=== PATIENT | female | born 1995 | race Caucasian/White ===

== ENCOUNTER 2017-11-18 18:00 | Emergency (ER) | payer MEDICAID, SELFPAY ==
[2017-11-18 18:01] VITALS: BP 142/95; PULSE 110; RESP 22; TEMP 36.6; O2SAT 95; BMI 25.9
[2017-11-18 18:07] VITALS: BP 142/95; PULSE 102; RESP 22; TEMP 36.6; O2SAT 98
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
--- NOTE | 2017-11-18 18:18 | NURSING ---
CALLING [facility] ABOUT TRANSFER.
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
--- NOTE | 2017-11-18 18:23 | NURSING ---
NO OLD EKGS
[2017-11-18] MEDS: HYDROmorphone 1 MG/ML Syringe IV ×3 (18:26→19:17)
[2017-11-18] MEDS: 0.9% Normal Saline 1,000 ML 1000 ML IV (18:26)
[2017-11-18] MEDS: 0.9% Normal Saline 1,000 ML 150 ML IV (18:26)
[2017-11-18] MEDS: Ondansetron 4 MG/2 ML Vial IV (18:26)
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
[2017-11-18 18:38] LABS: Absolute Neutrophil Count 8.2 X10^3/uL (2.0-7.7); Basophil# 0.01 X10^3/uL; Basophil% 0.1 % (0-1); Eosinophil# 0.09 X10^3/uL; Eosinophils% 0.8 % (0-5); Hematocrit 41.9 % (37-47); Lymphocyte % 23.5 % (19-41); Mean Corp Hgb Conc 33.4 g/gl (32-36); Mean Corpuscular Hgb 30.1 pg (27.0-32.0); Mean Corpuscular Volume 90.1 fL (81-99); Monocyte# 0.74 X10^3/uL; Monocyte% 6.2 % (0-10); Neutrophil # 8.21 X10^3/uL (2.7-7.7); Neutrophil % 69.1 % (47-70); POSITIVE COUNT NO; POSITIVE DIFFERENTIAL NO; POSITIVE MORPHOLOGY NO; Platelet Count 315 K/mm3 (150-450); RBC Distribution Width CV 13.1 % (11.6-14.6); RBC Distribution Width SD 42.7 fl (35.1-43.9); Red Blood Count 4.65 M/mm3 (4.2-5.4); White Blood Count 11.9 K/mm3 (4.4-11.0)
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
[2017-11-18 18:46] VITALS: BP 160/124; PULSE 99; RESP 18; O2SAT 98
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
[2017-11-18 19:00] LABS: AST(SGOT) 48 U/L (15-37); Alanine Aminotransfer ALT/SGPT 46 U/L (13-56); Albumin, Serum 3.5 g/dL (3.2-5.0); Alkaline Phosphatase 71 U/L (45-117); Anion Gap 7 (5-15); BUN 11 mg/dL (7-18); BUN/Creat Ratio 13.5 RATIO (10-20); Calcium,Total 8.6 mg/dL (8.5-10.1); Chloride 112 mmol/L (98-107); Creatinine, Serum 0.81 mg/dL (0.55-1.02); EST Glomerular Filtration Rate 95 mL/min (>60); Est Glom Filt Rate - Afr Amer 115 mL/min (>60); Estimated Creatinine Clearance 111.76 ml/min; Globulin 3.6 g/dL (2.2-4.2); Glucose 105 mg/dL (74-106); Potassium 3.5 mmol/L (3.5-5.1); Protein, Total 7.1 g/dL (6.4-8.2); Sodium Level 142 mmol/L (136-145)
[2017-11-18 19:17] VITALS: BP 160/124; PULSE 99; RESP 20; O2SAT 98
== END 2017-11-18 19:14 | disposition short-term general hospital (02) ==
PROVIDERS: Emergency Provider Emergency Medicine
DX: S72.91XA Unspecified fracture of right femur, initial encounter for closed fracture (principal); S09.90XA Unspecified injury of head, initial encounter; S39.91XA Unspecified injury of abdomen, initial encounter; V89.2XXA Person injured in unspecified motor-vehicle accident, traffic, initial encounter; Y93.9 Activity, unspecified; Y92.410 Unspecified street and highway as the place of occurrence of the external cause; Y99.9 Unspecified external cause status; Z72.0 Tobacco use
CPT/HCPCS: 70450; 71045; 72125; 72170; 73551; 80053; 80320; 85025; 96361; 96374; 96375; 96376; 99285; J7030; A4216; G0480; J2405

== ENCOUNTER 2017-12-29 06:43 | Emergency (ER) | payer MEDICAID, SELFPAY ==
[2017-12-29 06:44] VITALS: BP 113/90; PULSE 100; RESP 28; TEMP 36.8; O2SAT 97; BMI 36.2
[2017-12-29] MEDS: fentaNYL 100 MCG/2 ML Ampul 50 MCG IV (07:47)
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
--- NOTE | 2017-12-29 09:05 | ED.DEP ---
ED Disposition - Plan for ED Patient: Chief Complaint: Fall Instructions: Using a Walker Prescriptions: Hydrocodone Bitart/Apap 5-325 [[place] 5MG-325MG] 1 tab PO Q6H PRN PRN 3 Days #10 tab PRN Reason: Pain Additional Instructions: follow up with Dr. Gill
[2017-12-29 09:38] VITALS: RESP 20
== END 2017-12-29 10:00 | disposition home or self-care (01) ==
LOC: ED 06:53
PROVIDERS: Emergency Provider Emergency Medicine
DX: M79.604 Pain in right leg (principal); Z72.0 Tobacco use
CPT/HCPCS: 72170; 73552; 73560; 99285; A4216

== ENCOUNTER 2018-01-21 10:50 | Emergency (ER) | payer MEDICAID, SELFPAY ==
[2018-01-21 10:52] VITALS: BP 128/73; PULSE 86; RESP 16; TEMP 36.4; BMI 35.2
[2018-01-21 11:05] VITALS: RESP 16
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
--- OUTSIDE RECORDS SUMMARY | 2018-04-25 01:25 | XMS RPT_ITS ---
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 Dental caries. PLAN/DISPOSITION: I have advised her to make sure she does continue the Pen-VK every 6 hours. She is to follow up with her dentist appointment on October 16, but we did give her a dental referral sheet as well, so if she could get in to see someone sooner that would be good. If the patient's symptoms become worse, she is to return here to the emergency department. The patient was discharged in a clinically stable condition. Nursing notes reviewed. Dictated By: Manish Nolan DO 09/26/17 17:25 JOB #: [id number] Transcribed By: am 09/27/17 16:30 Electronically signed by: E-Sign: Dr. Manish Nolan D.O. 10/03/17 16:01 Page 2 of 3 [facility]AT[facility] Emergency Room Report Page 3 of 3 [facility] Emergency Room Report EMERGENCY REPORT Observed: 05/10/2017 Status: F Source: [facility] 7:19 PM [facility] EMERGENCY ROOM REPORT NAME ACCOUNT SEX AGE ADMIT DISCHARGE PT MED. RECORD# NUMBER DATE DATE TYPE DILL [id number] F 21 05/01/17 05/02/17 3 BEATRIZ [id number] ROOM: ER DATE OF : 1995 DICTATING PHYSICIAN: Mahsa Mcmillan ADDENDUM: FAMILY HISTORY: The patient denied. She states her mom and dad were in reasonable of health. She denied any psychiatric issues in her family. D: Mahsa DO Hipolito TD: 05/03/17 17:45 JOB #: [id number] Transcribed by: am Electronically signed by: E-SIGN MAHSA OMVANIA MULLEN 05/10/17 19:18 Page 1 of 1 [facility] Emergency Room Report EMERGENCY REPORT Observed: 05/10/2017 Status: F Source: [facility] 7:18 PM [facility] EMERGENCY ROOM REPORT NAME ACCOUNT SEX AGE ADMIT DISCHARGE PT MED. RECORD# NUMBER DATE DATE TYPE FUENTES [id number] F 21 05/01/17 05/02/17 3 BEATRIZ [id number] ROOM: ER DATE OF : 1995 DICTATING PHYSICIAN: Mahsa Mcmillan HISTORY OF PRESENT ILLNESS: This is a very nice young lady with no physician who arrived at 2212 hours. She was seen directly at arrival for self mutilation and self injury. She is having problems with her boyfriend at home, and she thinks he is going to leave her and she has been pretty depressed about that. She has not been using any drugs that she admits to. She states that she has not been using alcohol. She states she does smoke. She wants to have a job, but her boyfriend will not let her have a job because they want to live out in the [facility], and so she states that she is hoping that he will let her have a job. She quit her previous job because she wanted to be a stay at home , and she thought it would be appropriate for her to stop working. So that is what the story is, and so she is not working. She states tonight she is not sure if she is really suicidal, but she has had multiple self inflicted wounds on her wrist. She is right handed. Tonight, she used a hoop cutter and cut her wrists, and she did a nice job. It went about 4 or 5 inches proximal to lower wrist crease on the left. It is a 7 cm wound with penetration to the fascia, but no evidence of underlying tendon injury. Good tendon strength distally, neurovascular distal is okay, and no exposed tendons, arteries, nerves. The patient has no other injuries. This is a transverse incision. It is very clean. She has some proximal irritation to the wrists, which she states she has done in the past. Otherwise, she is well spoken. She demonstrates some depression, but good eye contact. I talked at length with her. Later, mom and boyfriend came in. Her boyfriend's mom and her boyfriend seemed to be somewhat indifferent to the whole situation. PAST MEDICAL HISTORY: She states she has had problems with depression and suicidal ideations in the past, nothing that she has ever done. MEDICATIONS: She does not take any medicines. PHYSICAL EXAMINATION: The patient is alert, oriented, and appropriate. Pupils equal, round, and reactive 2.5 mm. No nystagmus. Neck is supple. There is no anterior or posterior cervical adenopathy. Lungs are clear. Heart rate and rhythm regular without murmur. She is not tachypneic. Abdomen is soft. Bowel sounds are normal. Skin is warm and dry except where she has the laceration on the left wrist as previously noted. Her vital signs at arrival: She had 20 respirations, 97.8 temporal scanning, 108 pulse, 130/92 blood pressure, and 99% saturation. DIAGNOSTIC DATA: Her laboratory data for medical clearance was stable. She did have a 17.8 Co2, but I think that was patient admitting representative to the fact that she was Page 1 of 2 [facility] Emergency Room Report hyperventilating when she first came in. She had an EKG with a rate of 89. No evidence of acute NC or ischemia. There was no ectopy seen. There is no evidence of any toxic problem there. EMERGENCY DEPARTMENT COURSE AND TREATMENT: She denied any injections. Laboratories were ordered. She was placed under observation. She remainder cooperative. She is alert. She is allergic lidocaine she states, so I used Benadryl after cleansing the surface used that and instilled it around the skin edges, and the patient has no pain and then we sutured her wound closed using six 4-0 Vicryl and then we used 4 Steri-Strip fastened with tissue adhesive. The patient had no further bleeding. Neurovascular remained intact. The patient remained cooperative. I talked to her many times during the night, and she always remained comfortable, cooperative. She was pink slipped by Dr. Mcmillan. She is medically cleared. One final evaluation at 7 o'clock in the morning, I said good-bye to the patient. She was alert and appropriate. Pupils were normal, and she acknowledges she was going and that she was going to be receiving some psychiatric assistance. DIAGNOSES: 1. Major depression with laceration left arm 6 cm transverse volar aspect, 6 stitches 4 Steri-Strips. 2. Poor impulse control. PLAN/DISPOSITION: The people from guidance came and saw her, and determined if she would benefit from admission. She is a very smart young lady, but she also has poor impulse control, and it looks to us like there is some indifference that could occur between her and her boyfriend that would lead her to another impulse evacuation, which I think could be anything, and so I think it is the prudent thing to have her hospitalized. She is pretty mixed up about her thinking when she came in. Arrangements for admission was at 0127 hours, and the ambulance will be here at about 0900 hours in the morning to take her. She was informed. She was cooperative and agreeable, although she states she wished she could go home, but she did not require restraints and she was cooperative in the emergency room. D: Mahsa Mcmillan DO TD: 05/03/17 17:05 JOB #: [id number] Transcribed by: am Electronically signed by: E-SIGN MAHSA MCMILLAN DO 05/10/17 19:18 Page 2 of 2 [facility] Emergency Room Report URINALYSIS Collected: 05/01/2017 Status: F Source: [facility] 10[facility] REPOSITORY TYPE CODE TESTS RESULT OUT OF REFERENCE UNITS RANGE LAB URINALYSIS (LOINC) URINALYSIS Result Comment: URINALYSIS LAB Specimen Type(LOINC) Specimen Clean Type catch LAB Color(LOINC) NORMAL: YELLOW Color YELLOW LAB Clarity(LOINC) NORMAL: CLEAR Clarity clear LAB ph(LOINC) NORMAL: 5.0-8.0 ph 6 LAB Protein(LOINC) NORMAL: NEGATIVE Protein NEG LAB Glucose(LOINC) NORMAL: NORMAL Glucose NORM LAB Ketone(LOINC) NORMAL: NEGATIVE Ketone NEG LAB Bilirubin(LOINC) NORMAL: NEGATIVE Bilirubin NEG LAB Blood(LOINC) NORMAL: NEGATIVE Blood NEG LAB Urobilinog(LOINC) NORMAL: NORMAL Urobilinog NORM LAB Sp Bon Aqua(LOINC) NORMAL: 1.010-1.030 Sp Bon Aqua 1.015 LAB Nitrite(LOINC) NORMAL: NEGATIVE Nitrite NEG LAB Leukocytes(LOINC) NORMAL: NEGATIVE Leukocytes NEG LAB Microscopic(LOINC ) Microscopic NOT INDICATED Performed By: #### [id number] #### [place] [id number] DRUG SCREEN URINE Collected: 05/01/2017 Status: F Source: [facility] 10:55 PM [facility] REPOSITORY TYPE CODE TESTS RESULT OUT OF REFERENCE UNITS RANGE LAB DRUG SCREEN URINE MEDIC(LOINC) DRUG SCREEN URINE MEDIC Result Comment: DRUG SCREEN - URINE LAB PCP(LOINC) PCP NEG LAB COCAINE(LOINC) COCAINE NEG LAB OPIATES(LOINC) OPIATES NEG LAB AMPHETAMINES(LOINC ) AMPHETAMINES NEG LAB B-DIAZEPINES(LOINC ) B-DIAZEPINES NEG LAB TCA(LOINC) TCA NEG LAB METHADONE(LOINC) METHADONE NEG LAB BARBITURATES(LOINC ) BARBITURATES NEG LAB THC(LOINC) THC POS Result Comment: PATIENTS RECEIVING PROTON PUMP INHIBITORS MAY DEMONSTRATE FALSE POSITIVE THC/CANNABINOID RESULTS. AN ALTERNATIVE CONFIRMATORY METHOD SHOULD BE CONSIDERED TO VERIFY POSITIVE RESULTS. Performed By: #### [id number] #### [place] [id number] URINE Collected: 05/01/2017 Status: F Source: [facility] 10:55 PM [facility] REPOSITORY TYPE CODE TESTS RESULT OUT OF REFERENCE UNITS RANGE LAB NEGATIVE UR(LOINC) UR NEGATIVE LAB INTERNAL QC(LOINC) INTERNAL QC PASS LAB EXTERNAL QC DONE?(LOINC) EXTERNAL QC YES DONE? Performed By: #### [id number] #### [place] [id number] CBC Collected: 05/01/2017 Status: F Source: [facility] 10:45 PM [facility] REPOSITORY TYPE CODE TESTS RESULT OUT OF RANGE REFERENCE UNITS LAB CBC(LOINC) CBC Result Comment: CBC-COMPLETE BLOOD COUNT LAB WBC(LOINC) 4.5 - 10.8 x 10EE3/UL WBC High 14.7 LAB RBC(LOINC) 4.10 - x 10EE6/UL 5.30 RBC 4.56 LAB HEMOGLOBIN(LOINC 12.0 - g/dl ) 16.0 HEMOGLOBIN 14.0 LAB HEMATOCRIT(LOINC 34.0 - % ) 46.0 HEMATOCRIT 40.6 LAB MCV(LOINC) 80 - 99 fl MCV 89 LAB MCH(LOINC) 27 - 33 pg MCH 31 LAB MCHC(LOINC) 32 - 36 X10 3 MCHC 34 LAB RDW/CV(LOINC) 12.0 - % 15.6 RDW/CV 13.0 LAB PLATELET(LOINC) 150 - 450 x10EE3/UL PLATELET 242 LAB MPV(LOINC) 6.6 - 10.5 fl MPV 10.1 Result Comment: AUTOMATED DIFFERENTIAL LAB NEUT %(LOINC) 46.0 - 76.0 % NEUT % High 83.5 LAB LYMPH %(LOINC) 20.0 - 45.0 % Low LYMPH % 10.0 LAB MONOS %(LOINC) 0.0 - 10.0 % MONOS % 6.1 LAB EO %(LOINC) 0.0 - 7.0 % EO % 0.3 LAB BASO %(LOINC) 0.0 - 2.0 % BASO % 0.1 LAB Lymph #(LOINC) 0.80 - 2.80 x10EE3/U L Lymph # 1.50 LAB Neut #(LOINC) 1.50 - 7.10 x10EE3/U L Neut # High 12.20 LAB Dale #(LOINC) 0.20 - 1.00 x10EE3/U L Dale # 0.90 LAB EO #(LOINC) 0.00 - 0.50 x10EE3/U L EO # 0.00 LAB Baso #(LOINC) 0.00 - 0.10 x10EE3/U L Baso # 0.00 LAB MANUAL DIFF(LOINC) MANUAL DIFF N/A LAB MORPHOLOGY(LOINC ) MORPHOLOGY N/A Result Comment: {CD] Performed By: #### [id number] #### [facility],[address] [place] [address] CMP WITH EGFR Collected: 05/01/2017 Status: F Source: [facility] 10:45 PM [facility] REPOSITORY TYPE CODE TESTS RESULT OUT OF RANGE REFERENCE UNITS LAB CMP with eGFR(LOINC) CMP with eGFR Result Comment: COMPREHENSIVE METABOLIC PANEL LAB SODIUM(LOINC) 136 - 145 mmol/l SODIUM 137 LAB POTASSIUM(LOINC) 3.5 - 5.1 mmol/L Low POTASSIUM 3.4 LAB CHLORIDE(LOINC) 98 - 107 mmol/L CHLORIDE High 109 LAB CO2(LOINC) 21.0 - mmol/L 31.0 CO2 Low 17.8 LAB GLUCOSE(LOINC) 74 - 106 mg/dl GLUCOSE 97 LAB BUN(LOINC) 6 - 20 mg/dl BUN 10 LAB CREATININE(LOINC) 0.6 - 1.2 mg/dl CREATININE 0.8 LAB AST/SGOT(LOINC) 13 - 39 U/L AST/SGOT Low 10 LAB ALK PHOS(LOINC) 38 - 126 U/L ALK PHOS 45 LAB CALCIUM(LOINC) 8.6 - mg/dl 10.2 CALCIUM 9.2 LAB TOTAL 6.4 - 8.3 g/dl PROTEIN(LOINC) TOTAL PROTEIN 6.6 LAB ALBUMIN(LOINC) 3.4 - 4.8 g/dL ALBUMIN 4.0 LAB GLOBULIN(LOINC) 1.5 - 3.8 G/DL GLOBULIN 2.6 LAB A/G RATIO(LOINC) 0.9 - 1.6 A/G RATIO 1.5 LAB TOTAL BILI(LOINC) 0.0 - 1.5 mg/dl TOTAL BILI 0.3 LAB B/C RATIO(LOINC) 0 - 30 ratio B/C RATIO 13 LAB ALT/SGPT(LOINC) 8 - 35 U/L ALT/SGPT Low 7 LAB ANION GAP(LOINC) 10 - 20 mmol/L ANION GAP 14 LAB AGE(LOINC) years AGE 21 LAB eGFR(LOINC) 60 - 999 ML/MINUTE eGFR >60 LAB eGFR(AA)(LOINC) 60 - 999 ML/MINUTE eGFR(AA) >60 Result Comment: ACCORDING TO THE NATIONAL KIDNEY DISEASE EDUCATION PROGRAM(NKDE), A NORMAL eGFR IS A VALUE GREATER THAN OR EQUAL TO 60 ML/MIN/1.73 SQ METERS. CHRONIC KIDNEY DISEASE: <60mL/MIN/1.73 SQ METERS KIDNEY FAILURE: <15mL/MIN/1.73 SQ METERS THIS TEST SHOULD ONLY BE USED FOR PATIENTS 18 YEARS OF AGE AND OLDER. Performed By: #### [id number] #### [place] [address] ALCOHOL-BLOOD MEDICAL Collected: 05/01/2017 Status: F Source: [facility] 10:45 PM [facility] REPOSITORY TYPE CODE TESTS RESULT OUT OF REFERENCE UNITS RANGE LAB ALCOHOL(DENISE 0 - 50 mg/dl NC) ALCOHOL 29 Performed By: #### [id number] #### [place] [id number] SALICYLATE Collected: 05/01/2017 Status: F Source: [facility] 10:45 PM [facility] REPOSITORY TYPE CODE TESTS RESULT OUT OF REFERENCE UNITS RANGE LAB SALICYLATE 0.0 - 30.0 mg/dl (LOINC) SALICYLATE <4.0 Result Comment: *PATIENTS TREATED WITH SULFASALAZINE MAY GENERATE A FALSE HIGH RESULT FOR SALICYLATE. *PATIENTS TREATED WITH SULFAPYRIDINE MAY GENERATE A FALSE LOW RESULT FOR SALICYLATE. Performed By: #### [id number] #### [place] [id number] ACETAMINOPHEN Collected: 05/01/2017 Status: F Source: [facility] 10:45 [facility] REPOSITORY TYPE CODE TESTS RESULT OUT OF REFERENCE UNITS RANGE LAB ACETAMINOP 10.0 - 20.0 ug/mL HEN(LOINC) ACETAMINOPHEN <10.0 Performed By: #### [id number] #### [place] [id number] TSH Collected: 05/01/2017 Status: F Source: [facility] 10:45 [facility] REPOSITORY TYPE CODE TESTS RESULT OUT OF RANGE REFERENCE UNITS LAB TSH(LOINC) 0.34 - 5.60 uIU/ml TSH 1.55 Performed By: #### [id number] #### [place] [address] ALLERGIES ALLERGIES DATE TYPE / CODE NAME / CODE REACTION SEVERITY SOURCE 01/21/2018 Drug No Known Unknown [facility] Allergy/416 Allergies/H10724 Hospital 414083(SNOM 0388(RXNORM) Repository ED CT) 11/19/2017 DRUG LIDOCAINE SWELLING [facility] INGREDI/419 Other [place] 530535(SNOM Repository ED CT) 11/18/2017 Drug lidocaine/J47173 Swelling Unknown [facility] Allergy/416 1350(RXNORM) [facility] 560558(SNOM Repository ED CT) Drug NO KNOWN [facility] Class/00828 ALLERGIES Other [place] 1003(SNOMED Repository CT) NG/18119080 LIDOCAINE [facility] 6(SNOMED [facility]) Repository NG/[id number] NO KNOWN [facility] 6(SNOMED ALLERGIES [facility]) Repository Drug LIDOCAINE/930477 Moderate Francisco Pomerene Allergy/416 02(RXNORM) ([facility] 956646(SNOM Modifier) Repository ED CT) (Qualifier Value) ENCOUNTERS ENCOUNTERS ADMIT/DISCHARGE ACCOUNT NUMBER ADMITTING ENCOUNTER LOCATION SOURCE CLASS 02/12/2018 [id number] Ambulatory [facility] MEDICAL Repository CENTERBuildi ng:AGPOB1 02/06/2018/02/07/19 [id number] Ambulatory [address] Main [place] Repository 01/25/2018/01/29/20 [id number] Ambulatory [address] Main [place] Repository 01/21/2018/01/22/20 [id number] Emergency [address] ding:ED Repository 01/18/2018 [id number] Ambulatory [facility] MEDICAL Repository CENTERBuildi ng:AGHWG1 01/16/2018/01/18/[id number] Main [place] Repository 01/08/2018/01/09/20 [id number] Ambulatory [address] Other [place] Repository 01/08/2018/01/09/20 [id number] Ambulatory [address] MEDICAL Repository CENTERBuildi ng:AGPOB1 12/29/2017/12/30/19 [id number] Emergency [address] ding:ED Repository 12/14/2017/12/15/19 [id number] Ambulatory [address] [place] Repository 12/14/2017/12/15/19 [id number] Ambulatory [address] MEDICAL Repository CENTERBuildi ng:AGHWG1 11/30/2017 [id number] JUWAN, [facility] Other [place] Repository 11/30/2017/12/01/19 [id number] JUWAN, Inpatient AKRON [facility] [address] [facility] MEDICAL Repository [facility] ng:CHICHIooambrosio: POOLBed: 16 11/30/2017 [id number] Ambulatory [facility] MEDICAL Repository [facility] ng:AGHWG1 11/26/2017/11/27/19 [id number] Ambulatory [address] [place] Repository 11/26/2017/11/28/19 [id number] Ambulatory [address] Main [place] Repository 11/18/2017/11/23/19 [id number] MUAKROSAA, Inpatient [place] 18 FARID [facility] Other [place] Repository 11/18/2017/11/23/19 [id number] [facility] 18 FARID F [facility] MEDICAL Repository [facility] nBRoom: 5255Bed: 01 11/18/2017/11/19/19 [id number] Emergency [place] 18 [facility] ding:ED Repository 09/26/2017/09/27/19 [id number] MANISH NOLAN Emergency [facility] [place] [address] 18 DO Room: ERBed: [facility] Repository 05/01/2017/05/03/19 [id number] HIPOLITO Emergency [facility] [place] [address] MAHSA DO Room: ERBed: [facility] Repository PAYERS PAYERS ENCOUNTER GUARANTOR PAYER SUBSCRIBER SOURCE 02/12/2018 BEATRIZ T Primary BEATRIZ T [facility] COMBSDOB: Insurance:CARESOURCE COMBSDOB: Health System E MEDICAIDPolicy Number: [id number] [facility] [id number] [place] Date: [address]Jph: () 01/21/2018 BEATRIZ T Primary BEATRIZ T [place] [id number] E Insurance:CARESOURCEPo COMBCOOB: [facility] Number: [id number] [place], [place] [id number] Repository [address]Vpn: ([phone]) Date:2018-01-21 [phone] (HP) 290[address]ATTN: [place] [address]RC: 01/21/2018 Secondary NOT GIVENUNK [place] Insurance:SELF PAY [facility] Number: Effective Repository Date:2018-01-21 01/18/2018 BEATRIZ T Primary BEATRIZ T [facility] COMBSDOB: Insurance:CARESOURCE COMBSDOB: Health System E MEDICAIDPolicy Number: [id number] Repository MARICARMEN [id number] [place], [place] Date: [address]Qqd: () 01/08/2018 BEATRIZ T Primary BEATRIZ T [facility] COMBSDOB: Insurance:CARESOURCE COMBSDOB: Health System E MEDICAIDPolicy Number: [id number] Repository MARICARMEN [id number] [place], [place] Date: [address]Xbz: () 12/29/2017 BEATRIZ T Primary BEATRIZ T [place] [id number] E Insurance:CARESOURCEPo COMBSDOB: [facility] Number: [id number] [place], [place] [id number] Repository [address]Hst: (129) Date:2017-12-29[phone] () 8730ATTN: [place] [address]XF: 12/29/2017 Secondary NOT GIVENUNK [place] Insurance:SELF PAY [facility] Number: Effective Repository Date:2017-12-29 12/14/2017 BEATRIZ T Primary BEATRIZ T [facility] COMBSDOB: Insurance:CARESOURCE COMBSDOB: Health System E MEDICAIDPolicy Number: [id number] Repository MARICARMEN [id number] [place], [place] Date: [address]Lzj: () 11/30/2017 BEATRIZ T Primary BEATRIZ T [facility] COMBSDOB: Insurance:CARESOURCE COMBSDOB: [facility] System E MEDICAIDPolicy Number: [id number] Repository [place] [id number] [facility], [place] Date: [id number]: () 11/30/2017 BEATRIZ T Primary BEATRIZ [facility] COMBSDOB: Insurance:CARESOURCE COMBSDOB: Health System MEDICAIDPolicy Number: [id number] Repository [facility] [id number] [address] [place] [address], Date: [place] [phone]: (HP) 11/18/2017 BEATRIZ T Primary BEATRIZ T [place] [facility] COMBSDOB: Insurance:CARESOURCE COMBSDOB: Health System E MEDICAIDPolicy Number: [id number] Repository [place] [id number] [place], [place] Date: [address]Gaz: () 11/18/2017 BEATRIZ T Primary BEATRIZ T [place] [id number] Insurance:CARESOURCEPo COMBSDOB: [address] Number: [id number] [facility] [address]Dsx: [id number] Repository Date:2017-11-18[address]ATTN: [place] [address]SR: 11/18/2017 Secondary NOT GIVENUNK [place] Insurance:SELF PAY [facility] Hospital Number: Effective Repository Date:2017-11-18 09/26/2017 BEATRIZ Primary Beatriz Bond COMBSDOB: Insurance:CARESOURCE CombsDOB: [facility] [id number] [facility] [id number] Hospital COUNTY Number: 5 [facility] [id number] [facility] [place], [place] Date:Plan Name:[id number]: () 05/01/2017 BEATRIZ Primary BEATRIZ Bond COMBSDOB: Insurance:CARESOURCE COMBSDOB: [facility] [id number] OUTPATIENTPol[facility] [id number] [facility] [place] [place] Number: [address] [place] [id number] [address]Qhl: [phone]) Date:Plan Name:[phone]
== END 2018-01-21 11:47 | disposition home or self-care (01) ==
PROVIDERS: Emergency Provider Emergency Medicine
DX: K08.89 Other specified disorders of teeth and supporting structures (principal); M79.674 Pain in right toe(s); M25.551 Pain in right hip; Z72.0 Tobacco use; K02.9 Dental caries, unspecified
CPT/HCPCS: 99282

== ENCOUNTER 2018-06-09 09:39 | Emergency (ER) | payer MEDICAID, SELFPAY ==
[2018-06-09 09:40] VITALS: BP 131/82; PULSE 105; RESP 18; TEMP 36.7; O2SAT 100; BMI 34.8
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
[2018-06-09 11:10] VITALS: BP 136/78; PULSE 103; RESP 16
== END 2018-06-09 11:10 | disposition home or self-care (01) ==
PROVIDERS: Emergency Provider Emergency Medicine
DX: S01.511A Laceration without foreign body of lip, initial encounter (principal); S30.810A Abrasion of lower back and pelvis, initial encounter; Y04.2XXA Assault by strike against or bumped into by another person, initial encounter; Y93.9 Activity, unspecified; Y92.009 Unspecified place in unspecified non-institutional (private) residence as the place of occurrence of the external cause; Y99.9 Unspecified external cause status; Z72.0 Tobacco use
CPT/HCPCS: 12011; 99284

== ENCOUNTER 2018-12-16 13:49 | Emergency (ER) | payer MEDICAID, SELFPAY ==
[2018-12-16 13:51] VITALS: BP 130/68; PULSE 109; RESP 18; TEMP 36.6; O2SAT 96; BMI 31.6
--- NOTE | 2018-12-16 14:33 | ED.VISSUMM ---
- ER Visit Summary Date of Service: 12/16/18 Chief Complaint: Sore throat History of Present Illness: The patient is a 23 F who presents the emergency department 4 days of sore throat. She was seen at clinic urgent care was sent to the emergency department for further evaluation. There she had a rapid strep that was negative. Patient denies any cough or significant rhinorrhea but notes subjective fever chills and sweats. She notes painful swallowing. She denies any rashes vomiting diarrhea. History of anxiety she is a smoker. She notes generalized malaise and fatigue. Physical Examination: Afebrile heart rate 109 respirations 18 pulse ox 96% blood pressure 130/60 Gen: Well-nourished well-developed Head: Normocephalic atraumatic Eyes: Perrl EOMI ENT: TMs clear no rhinorrhea moist mucous membranes there is bilateral left greater than right tonsillar swelling erythema and exudate. The uvula is not deviated. There is no peritonsillar or retropharyngeal abscess noted. No trismus. There is no muffled voice and she is handling her secretions normally Neck: Supple there are a few tender anterior lymph nodes but there is also tender posterior lymph nodes. No JVD nontender CVS: Regular rate rhythm no murmurs normal S1-S2 Respiratory: No distress clear to auscultation bilaterally chest nontender Abdomen: Soft nontender nondistended normal bowel sounds no masses Back: Nontender Extremity: Nontender no edema Skin: Normal color no rash Neuro: alert orientated ?3 CN II-XII intact normal strength sensation reflexes gait cerebellar Psych: Normal affect normal mood Test Results: [place] and throat culture were obtained. Monospot was negative. Emergency Department Course and Treatment: Patient received IV fluids, Toradol, and Decadron. Patient will be started on cefdinir. Patient inquires about tonsillectomy advised her that that is discussion best to have with an ear nose and throat surgeon. I will give her referral. Return if worsening or concerns Impression: 1. Acute exudative tonsillitis This note was generated with [employer] dictation software. It may contain incorrect words, spelling, and punctuation that were not noted in review of the chart prior to signing ED Disposition - Plan for ED Patient: Disposition: Home or Assisted Living Instructions: ED Tonsillitis Prescriptions: Cefdinir 300 mg PO BID #10 cap Prescription Printed Referrals: Fran Camarena MD [STAFF PHYSICIAN] - 1 Week if not improving
[2018-12-16] MEDS: Ketorolac 30 MG/ML Syringe IV (14:39)
[2018-12-16] MEDS: dexAMETHasone 10 MG/ML Vial IV (14:39)
[2018-12-16] MEDS: 0.9% Normal Saline 1,000 ML 1000 ML IV (14:40)
[2018-12-16 15:13] LABS: Internal QC Validated? YES +Cl - CLEAR BKGD; Monotest Negative (Negative)
== END 2018-12-16 15:34 | disposition home or self-care (01) ==
LOC: ED 14:18
PROVIDERS: Emergency Provider Emergency Medicine; Family Provider Physician Assistant; PCP Physician Assistant
DX: J03.90 Acute tonsillitis, unspecified (principal)
CPT/HCPCS: 86308; 87077; 87880; 96361; 96374; 96375; 99283; J7030; A4216

== ENCOUNTER 2019-01-20 08:15 | Emergency (ER) | payer MEDICAID, SELFPAY ==
[2019-01-20 08:17] VITALS: BP 113/66; PULSE 112; RESP 17; TEMP 37.7; O2SAT 96; BMI 32.3
--- NOTE | 2019-01-20 08:44 | ED.VIS.URI ---
History of Present Illness Chief Complaint: Sore Throat Informant: Patient Onset: Today Context: Gradual Onset Timing: Intermittent Worsened by: Swallowing, Eating Solids Relieved by: NSAIDs Associated Symptoms: Headache, Nausea, Diarrhea, Nonproductive cough, - - Left ear pain Narrative: Patient is a 23-year-old female presents with recurrent sore throat. Patient states over the past month and a half she has had multiple episodes of sore throat. She had multiple visits to her primary care doctor, the ER and urgent care. Most recently 5 days ago she saw the nurse practitioner at her PCPs office who sent her to the emergency room. She was started on antibiotics which she has been taking for the past 5 days. Patient states she had been improving until today. She woke up and her throat was quite painful swollen and had exudates. Is worse on the left side she also has associated left ear pain. Does have an associated cough. She is been taking ibuprofen for her discomfort and using Chloraseptic spray. She do not have anything today for her symptoms. Patient states she has had multiple strep swabs that have been negative. She was tested for mono in the ER and that was negative she thinks. She notes she started feeling better after her last ER visit. She is had multiple sick contacts and states everyone at home is sick. Her brother has bronchitis currently. Patient does smoke cigarettes. She had diarrhea last night, 3 episodes. She has associated nausea but no vomiting. She does have a mild nonproductive cough. She had chills last night as well. She is not aware if she had a fever. She denies any other complaints at this time. Chart review shows that on 01/15, 5 days ago patient seen in the ER and at that time given IV fluids, Toradol and Decadron. She was started on cefdinir and referred to ENT. Throat culture was positive for Streptococcus group F. Past Medical History - Allergies and Home Meds Allergies/Adverse Reactions: Allergies No Known Allergies Allergy (Verified 01/20/19 08:16) Primary Care Physician: Coral Hernandez PA [Primary Care Provider] - Past Medical History: None Surgical History: noncontributory Lives: With Family Smoking Status: Current every day smoker Review of Systems General: Reports: Chills, Malaise. Denies: Fever, Sweats Eyes: Denies: Visual changes - bilaterally, Diplopia ENT: Reports: Left ear pain, Sore throat. Denies: Rhinorrhea Cardiovascular: Denies: Chest pain, Palpitations Respiratory: Reports: Cough. Denies: Dyspnea, Dyspnea on exertion Gastrointestinal: Reports: Nausea, Diarrhea. Denies: Abdominal pain, Vomiting, Melena, Hematochezia Genitourinary: Denies: Dysuria, Hematuria, Frequency Musculoskeletal: Denies: Back pain, Extremity Pain Skin: Denies: Rash, Wounds Neurological: Denies: Headache, Weakness, Numbness Physical Exam Vital Signs/Narrative: Vital Signs Temp Pulse Resp BP Pulse Ox 01/20/19 08:17 99.8 F H 112 H 17 113/66 96 Inital Vital Signs reviewed: Yes General: Well nourished, Well developed Head: Normocephalic, Atraumatic Eyes: Perrl, EOMI Ears: Normal external canal, - - Cloudiness of the left tympanic membrane, no erythema or air-fluid level present. Normal right tympanic membrane Nose: Normal Inspection, Swollen Turbinates Mouth/Throat: Normal Inspection, Posterior Oropharyngeal Erythema Tonsils: Right Tonsilar Erythema, Left Tonsilar Erythema, Right Tonsilar Exudates, Left Tonsilar Exudates, Right Tonsilar Swelling, Left Tonsilar Swelling, - - No deviation of the uvula or asymmetry of the tonsils. Neck: Supple, Nontender, No Meningismus Cardiovascular: Regular rate, Regular rhythm, No murmurs Respiratory: No distress, CTA bilaterally, Chest nontender Abdomen: Soft, Nontender, Nondistended, Normal bowel sounds Back: Nontender, Normal Inspection Extremities: Nontender, No edema Skin: Normal color, No rash Neurological: Alert, Oriented x3, Cranial nerves II-XII grossly intact, Normal Strength, Normal Sensation Psychological: Normal affect Diagnostic/Tx/Re-eval Laboratory Data 01/20/19 01/20/19 09:05 09:15 Urine Test Negative Monoscreen Negative - Medical Decision Making Patient evaluated for recurrent sore throat. She has exudate and erythema as well as pain but does not have findings concerning for a peritonsillar abscess at this time. She is given Decadron. Strep swab is negative as well as Monospot. 5 days ago her strep culture came back positive for group F Streptococcus. Because of this she will be given a dose of Bicillin. She is given Motrin and Tylenol for pain control. Urine is negative. She is referred to ENT because of the relapsing course of her pharyngitis as well as her frequent pharyngitis. She is counseled that she should return the emergency room in 48 hours if she is not improving. She should follow-up with her primary care doctor. She is instructed to continue to alternate Tylenol and Motrin for symptoms. At this point patient was well-appearing I do not think repeat blood work is indicated. Patient is counseled on signs and symptoms requiring return to the emergency room. Patient verbalizes agreement and understand this plan. Patient discharged home in stable and improved condition. ED Disposition - Plan for ED Patient: Disposition: Home or Assisted Living Diagnosis: Strep pharyngitis Instructions: PHARYNGITIS, Strep (Confirmed) Prescriptions: Ibuprofen [Motrin] 600 mg PO Q6H PRN PRN #20 tab PRN Reason: Pain Or Fever Prescription Printed Referrals: Coral Hernandez PA [Primary Care Provider] - Fernandez Lopez MD [STAFF PHYSICIAN] - Additional Instructions: Please follow-up with your nose and throat doctor. Return the emergency room if you are not improved in 48 hours or if you are worsening. Use salt water gargles for your throat at home as well as alternating Tylenol and ibuprofen regularly for your fever and pain.
[2019-01-20] MEDS: Ibuprofen 600 MG Tablet PO (09:17)
[2019-01-20] MEDS: dexAMETHasone 10 MG/ML Vial PO.IVFORM (09:17)
[2019-01-20 09:23] LABS: Internal QC Validated? YES +Cl - CLEAR BKGD; Pregnancy, Urine Negative Negative
[2019-01-20 09:32] LABS: Internal QC Validated? YES +Cl - CLEAR BKGD; Monotest Negative (Negative)
[2019-01-20 09:58] VITALS: BP 119/81; PULSE 98; RESP 16; TEMP 37.6; O2SAT 96
[2019-01-20] MEDS: Penicillin G Benzathine 1.2 MU/2 ML Syringe IM (10:19)
[2019-01-20] MEDS: Acetaminophen 500 MG Tablet 1000 MG PO (10:19)
== END 2019-01-20 10:26 | disposition home or self-care (01) ==
PROVIDERS: Emergency Provider Emergency Medicine; Family Provider Physician Assistant; PCP Physician Assistant
DX: J02.0 Streptococcal pharyngitis (principal); F17.210 Nicotine dependence, cigarettes, uncomplicated
CPT/HCPCS: 81025; 86308; 87880; 99284

== ENCOUNTER → 2019-01-23 17:20 | Outpatient (CLI) | payer MEDICAID, SELFPAY ==
[2019-01-20 08:17] VITALS: BMI 32.3
== END ==
PROVIDERS: Family Provider Physician Assistant; PCP Physician Assistant; Referring Provider Otolaryngology; Visit Provider Otolaryngology
DX: J02.9 Acute pharyngitis, unspecified (principal)
CPT/HCPCS: 87070

== ENCOUNTER 2019-11-16 15:56 | Emergency (ER) | payer MEDICAID, SELFPAY ==
[2019-11-16 15:58] VITALS: BP 130/67; PULSE 95; RESP 16; TEMP 36.4; O2SAT 98; BMI 34.2
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
--- NOTE | 2019-11-16 18:10 | ED.RN ---
Pt walked out to triage and states let them know back there that I had to go babysit. informed.
== END 2019-11-16 18:29 | disposition home or self-care (01) ==
LOC: ED 16:49
PROVIDERS: Emergency Provider Emergency Medicine; PCP Physician Assistant
DX: R20.2 Paresthesia of skin (principal); F17.200 Nicotine dependence, unspecified, uncomplicated
CPT/HCPCS: 73564; 99282; J7030; A4216

== ENCOUNTER 2019-12-30 16:33 | Observation (INO) | payer MEDICAID, SELFPAY ==
[2019-12-30 16:35] VITALS: BP 152/91; PULSE 99; RESP 18; TEMP 36.5; O2SAT 99; BMI 33.3
--- NOTE | 2019-12-30 16:47 | ED.VISSUMM ---
- ER Visit Summary Date of Service: 12/30/19 Chief Complaint: Vomiting History of Present Illness: The patient is a 24 F presenting with vomiting. States this started this morning. States she has vomited 4 times today. She states the last time she vomited she noticed blood in her emesis. She has had constipation. She denies abdominal pain. Denies fever. She has nausea. She denies blood in her stool. Denies other complaints. Physical Examination: Vitals are stable. Patient is afebrile. Alert no acute distress. HEENT exam is unremarkable. Neck is supple. Lungs are clear and equal bilaterally. Heart is regular rate and rhythm. Abdomen is soft mild epigastric tenderness with no guarding or rebound Extremities are unremarkable. Skin is warm and dry. No focal neurologic deficit. Remainder of exam is unremarkable. Emergency Department Course and Treatment: Patient was given IV fluids, Zofran. CBC, chemistries unremarkable other than potassium 3.4. Liver lipase normal. hCG negative. NG tube was attempted per nursing without success. Patient developed a nosebleed. She is unwilling to allow a second attempt of NG tube. She did have emesis in the ED that was dark red with coffee grounds. Patient remains hemodynamically stable. Discussed with Dr. Rivera. She was given Protonix IV. Discussed with the hospitalist. She will be observed overnight. Disposition: Observation Impression: Hematemesis This note was generated with [employer] dictation software. It may contain incorrect words, spelling, and punctuation that were not noted in review of the chart prior to signing ED Disposition - Plan for ED Patient:
[2019-12-30 17:15] LABS: Absolute Lymphocyte Count 1.55 X10^3/uL (0.83-4.51); Absolute Neutrophil Count 6.7 X10^3/uL (2.0-7.7); Basophil# 0.02 X10^3/uL; Basophil% 0.2 % (0-1); Eosinophil# 0.01 X10^3/uL; Eosinophils% 0.1 % (0-5); Hematocrit 40.4 % (37-47); Hemoglobin 13.3 g/dL (12.0-15.0); Lymphocyte # 1.55 X10^3/ul (4.0); Lymphocyte % 17.5 % (19-41); Mean Corp Hgb Conc 32.9 g/dL (32-36); Mean Corpuscular Hgb 30.2 pg (27.0-32.0); Mean Corpuscular Volume 91.8 fL (81-99); Mean Platelet Vol. 11.9 fl (6.2-12.0); Monocyte# 0.54 X10^3/uL; Monocyte% 6.1 % (0-10); NRBC Flagged by Analyzer 0 % (0-5); Neutrophil # 6.73 X10^3/uL (2.7-7.7); Neutrophil % 75.9 % (47-70); Platelet Count 312 K/mm3 (150-450); RBC Distribution Width CV 12.7 % (11.6-14.6); RBC Distribution Width SD 42.3 fl (35.1-43.9); White Blood Count 8.9 K/mm3 (4.4-11.0)
[2019-12-30] MEDS: 0.9% Normal Saline 1,000 ML 1000 ML IV (17:23)
[2019-12-30] MEDS: Ondansetron 4 MG/2 ML Vial IV (17:23)
[2019-12-30 17:35] LABS: ALB/GLOB Ratio 1.2 RATIO (0.9-2.4); AST(SGOT) 8 U/L (15-37); Alanine Aminotransfer ALT/SGPT 18 U/L (13-56); Albumin, Serum 4.2 g/dL (3.2-5.0); Alkaline Phosphatase 76 U/L (45-117); Anion Gap 7 (5-15); BUN 15 mg/dL (7-18); BUN/Creat Ratio 14.3 RATIO (10-20); Calcium,Total 9.6 mg/dL (8.5-10.1); Chloride 106 mmol/L (98-107); Creatinine, Serum 1.05 mg/dL (0.55-1.02); EST Glomerular Filtration Rate 69 mL/min (>60); Est Glom Filt Rate - Afr Amer 84 mL/min (>60); Estimated Creatinine Clearance 84.78 ml/min; Globulin 3.5 g/dL (2.2-4.2); Glucose 85 mg/dL (74-106); Internal QC Validated? YES +Cl - CLEAR BKGD; Lipase 48 U/L (73-393); Potassium 3.4 mmol/L (3.5-5.1); Pregnancy, Serum, hCG Quali. NEGATIVE Negative; Protein, Total 7.7 g/dL (6.4-8.2); Sodium Level 142 mmol/L (136-145)
--- NOTE | 2019-12-30 18:22 | ED.RN ---
Three attempts made to [address] NG tube but was not able to place due to resistance. Patient refusing any further attempts. MD notified. Patient resting in bed. Denies any needs at this time. Will continue to monitor.
--- NOTE | 2019-12-30 18:37 | PCM.HP.STD ---
<Leilani Carrizales OUTREACH REPRESENTATIVE - Last Filed: 12/30/19 18:44> Problem List (1) GI bleed Status: Acute History of Present Illness Date of Admission: 12/30/19 Chief Complaint: Vomiting, bloody emesis. The patient is a 24 year old F who presents to the emergency room due to vomiting with bloody emesis. Patient states she has had 4 episodes of this today. She complains of abdominal burning. She denies dizziness, lightheadedness or other associated symptoms. Patient reports a long-term history of GERD symptoms including burning and sometimes nausea, vomiting after meals. She states symptoms are worse after acidic foods, fatty foods or large meals. She does not take anything for her acid reflux. She has recently been taking ibuprofen for pain related to herpes. She is 1/2 pack/day smoker. She denies other medical history. Past Medical History Allergies No Known Allergies Allergy (Verified 12/30/19 16:34) Home Medications: Ambulatory Orders Medication Instructions Recorded Acyclovir [Zovirax] 400 mg PO BID 12/30/19 Surgical History: - - ORIF right femur, tooth extraction Psychiatric History: No pertinent psych hx SPIRAL BINDER History: No pertinent SPIRAL BINDER history Lives: With Family Smoking Status: Current every day smoker Tobacco Use: Cigarettes Alcohol: Occasional Drugs: None - *Family History Maternal History Items: Hypertension Paternal History Items: - - Gastric ulcers Review of Systems Constitutional: Denies: Chills, Fever, Weight Change HEENT: Denies: Head Aches, Sinus Congestion, Sinus Drainage Cardiovascular: Denies: Chest Pain, Palpitations Respiratory: Denies: Cough, Shortness of breath at rest, Sputum production Gastrointestinal: Reports: Nausea, Vomiting, - - Abdominal burning sensation. Denies: Constipation, Diarrhea Genitourinary: Denies: Dysuria Musculoskeletal: Denies: Joint Pain, Joint Tenderness Skin: Denies: Rash, Wounds Neurological: Denies: Numbness, Tingling, Focal weakness Psychiatric: Denies: Anxiety, Depression, Homicidal Ideations, Suicidal Ideations Hematologic/ Lymphatic: Denies: Easy Bruising, Easy Bleeding VTE Information - Inpt Only VTE Present on Admission: No VTE Mechan Device Prophylaxis: None VTE Pharm Prophylaxis ordered?: No Reason prophylaxis not ordered:: Medical Contraindication - Physical Exam Vitals/I&O's: Vital Signs Temp Pulse Resp BP Pulse Ox 97.7 F L 99 18 152/91 H 99 12/30/19 16:35 12/30/19 16:35 12/30/19 16:35 12/30/19 16:35 12/30/19 16:35 Oxygen Delivery Method Room Air Weight: 219 lb 5.759 oz Body Mass Index (BMI) 33.3 Finger Stick Blood Glucose 85 General: Alert, Oriented x3, Cooperative HEENT: Atraumatic, PERRLA, EOMI, Normocephalic Neck: Supple, No JVD, Negative Carotid Bruits Lungs: Clear to auscultation, Normal air movement Cardiovascular: Regular rate, No murmurs Abdomen: Bowel Sounds Present, Soft, Non Tender Extremities: No edema, Capillary Refill Less than 3 Seconds Skin: No rashes, No breakdown Musculoskeletal: No Tenderness to Palpation of Joints or Extremities Neurological: Cranial nerves II-XII grossly intact Psych/Mental Status: Normal Affect, Appropriate Laboratory Results 12/30/19 16:58: WBC 8.9, RBC 4.40, Hgb 13.3, Hct 40.4, MCV 91.8, MCH 30.2, MCHC 32.9, RDW Std Deviation 42.3, RDW Coeff of Adonis 12.7, Plt Count 312, MPV 11.9, Immature Gran % (Auto) 0.200, Neut % (Auto) 75.9 H, Lymph % (Auto) 17.5 L, [place] % (Auto) 6.1, Eos % (Auto) 0.1, Baso % (Auto) 0.2, Absolute Neuts (auto) 6.7, Absolute Lymphs (auto) 1.55, Nucleated RBC % 0 12/30/19 16:58: Sodium 142, Potassium 3.4 L, Chloride 106, Carbon Dioxide 29.0, Anion Gap 7, BUN 15, Creatinine 1.05 H, Estim Creat Clear Calc 84.78, Est GFR (MDRD) Af Amer 84, Est GFR (MDRD) Non-Af 69, BUN/Creatinine Ratio 14.3, Glucose 85, Calcium 9.6, Total Bilirubin 0.40, AST 8 L, ALT 18, Alkaline Phosphatase 76, Total Protein 7.7, Albumin 4.2, Globulin 3.5, Albumin/Globulin Ratio 1.2, Lipase 48 L 12/30/19 16:58: Serum , Qual NEGATIVE Current Medications Pantoprazole Sodium 40 mg/ (Sodium Chloride) 100 mls @ 300 mls/hr IVPB X1 ONE Stop: 12/30/19 18:59 Assessment/Plan All Active Problems GI bleed (Acute) 1. Upper GI bleed-hemoglobin stable. IV PPI twice daily. NG attempted in the ER without success, patient refusing repeat attempt. Clear liquids. N.p.o. after midnight. Case discussed with Dr. Rivera by ER. If emesis improves and hemoglobin remained stable, plan for discharge home tomorrow. However, if patient has recurrent bloody emesis or drop in hemoglobin we will plan for an upper scope. 2. Tobacco dependence-encourage cessation. Nicotine replacement patch. DVT prophylaxis-not indicated This patient was seen by STACEY Nino under the supervision of Dr. Rascon. <Sky Rascon F - Last Filed: 12/30/19 20:24> History of Present Illness The patient is a 24 year old F [] Past Medical History Allergies No Known Allergies Allergy (Verified 12/30/19 16:34) - Physical Exam Vitals/I&O's: Vital Signs Temp Pulse Resp BP Pulse Ox 98.7 F 84 16 121/67 H 99 12/30/19 19:35 12/30/19 19:35 12/30/19 19:35 12/30/19 19:35 12/30/19 19:35 Oxygen Delivery Method Room Air Weight: 219 lb 6.4 oz Body Mass Index (BMI) 33.3 Finger Stick Blood Glucose 85 Intake and Output for Last 24 Hours 12/28/19 12/29/19 12/30/19 23:59 23:59 23:59 Intake Total 1100 / 1100 Balance 1100 / 1100 Laboratory Results 12/30/19 16:58: WBC 8.9, RBC 4.40, Hgb 13.3, Hct 40.4, MCV 91.8, MCH 30.2, MCHC 32.9, RDW Std Deviation 42.3, RDW Coeff of Adonis 12.7, Plt Count 312, MPV 11.9, Immature Gran % (Auto) 0.200, Neut % (Auto) 75.9 H, Lymph % (Auto) 17.5 L, [place] % (Auto) 6.1, Eos % (Auto) 0.1, Baso % (Auto) 0.2, Absolute Neuts (auto) 6.7, Absolute Lymphs (auto) 1.55, Nucleated RBC % 0 12/30/19 16:58: Sodium 142, Potassium 3.4 L, Chloride 106, Carbon Dioxide 29.0, Anion Gap 7, BUN 15, Creatinine 1.05 H, Estim Creat Clear Calc 84.78, Est GFR (MDRD) Af Amer 84, Est GFR (MDRD) Non-Af 69, BUN/Creatinine Ratio 14.3, Glucose 85, Calcium 9.6, Total Bilirubin 0.40, AST 8 L, ALT 18, Alkaline Phosphatase 76, Total Protein 7.7, Albumin 4.2, Globulin 3.5, Albumin/Globulin Ratio 1.2, Lipase 48 L 12/30/19 16:58: Serum , Qual NEGATIVE Current Medications Influenza Virus Vaccine Quadrival (Influenza Vaccine (6mos+)/Pf 0.5 Ml Syringe) 0.5 ml IM .ONCE ONE Stop: 12/31/19 10:01 Non-Formulary Medication (Acyclovir [Zovirax]) 400 mg PO BID LEDY Sodium Chloride (0.9% Saline Lock 10 Ml Syringe) 10 - 40 ml IV UD PRN PRN Reason: SALINE FLUSH Addendum: Dr. Rascon I personally examined the patient and reviewed the chart. I agree with the above. 24-year-old female who was recently diagnosed with herpes started taking Advil for the pain on Sunday and then started having bloody emesis. She says that she generally has a sensitive stomach and is not uncommon for her to have episodes of emesis but she had about 4 episodes yesterday and continued to have emesis today and in the ER she had 2 episodes of bloody emesis, it appeared coffee-ground in the ER. An NG tube was attempted to be placed which failed and I discussed with the patient, she would prefer not to have one. Will admit with Protonix IV twice daily. Surgery was contacted by the ED physician and expressed the possibility of an EGD in the morning if she continues to have bloody emesis. We will recheck a CBC in the morning and ensure stability of her hemoglobin. She does take Tums on a fairly regular basis at home, so she will likely need to be discharged on a PPI as well. OBSV E&M: 83207 Initial observation care L2
[2019-12-30 19:16] VITALS: BP 130/73; PULSE 83; RESP 16; TEMP 36.7; O2SAT 98
[2019-12-30 19:18] VITALS: BMI 33.4
[2019-12-30 19:34] VITALS: BMI 33.3
[2019-12-30 19:35] VITALS: BP 121/67; PULSE 84; RESP 16; TEMP 37.1; O2SAT 99
[2019-12-30] MEDS: Acyclovir 200 MG Capsule 400 MG PO (21:06)
[2019-12-31] VITALS (9 sets, daily range): BP systolic 108–124; BP diastolic 51–79; PULSE 50–96; RESP 16–18; TEMP 36.4–37.1; O2SAT 94–100; BMI 33.3
[2019-12-31 06:04] LABS: Absolute Lymphocyte Count 1.82 X10^3/uL (0.83-4.51); Absolute Neutrophil Count 4.7 X10^3/uL (2.0-7.7); Basophil# 0.02 X10^3/uL; Basophil% 0.3 % (0-1); Eosinophil# 0.08 X10^3/uL; Eosinophils% 1.1 % (0-5); Hematocrit 38.3 % (37-47); Hemoglobin 12.2 g/dL (12.0-15.0); Lymphocyte # 1.82 X10^3/ul (4.0); Lymphocyte % 24.8 % (19-41); Mean Corp Hgb Conc 31.9 g/dL (32-36); Mean Corpuscular Hgb 30.1 pg (27.0-32.0); Mean Corpuscular Volume 94.6 fL (81-99); Monocyte% 9.5 % (0-10); NRBC Flagged by Analyzer 0 % (0-5); Platelet Count 255 K/mm3 (150-450); RBC Distribution Width SD 44.4 fl (35.1-43.9); Red Blood Count 4.05 M/mm3 (4.2-5.4); White Blood Count 7.3 K/mm3 (4.4-11.0)
[2019-12-31 06:29] LABS: Anion Gap 4 (5-15); BUN 12 mg/dL (7-18); BUN/Creat Ratio 15.5 RATIO (10-20); Calcium,Total 8.6 mg/dL (8.5-10.1); Chloride 112 mmol/L (98-107); Creatinine, Serum 0.78 mg/dL (0.55-1.02); EST Glomerular Filtration Rate 99 mL/min (>60); Est Glom Filt Rate - Afr Amer 119 mL/min (>60); Estimated Creatinine Clearance 114.12 ml/min; Glucose 87 mg/dL (74-106); Potassium 3.4 mmol/L (3.5-5.1); Sodium Level 142 mmol/L (136-145)
--- NOTE | 2019-12-31 07:52 | CON.PCM_ITS ---
Problem List (1) GI bleed Status: Acute Qualifiers: GI bleed type/associated pathology: gastrointestinal hemorrhage with hematemesis Qualified Code(s): K92.0 - Hematemesis Reason for Consult Date of Consultation: 12/31/19 Reason for Consultation: Upper GI bleeding History of Present Illness: The patient is a 24 year old F presented yesterday with nausea vomiting abdom inal pain. The patient reports she developed abdominal pain with vomiting yesterday and after a few rounds of vomiting she started vomiting blood. She says she has epigastric pain. She has been having increased use of NSAIDs over the past few days and does have GERD at baseline. Patient does not normally take a PPI. She is on no blood thinners. Patient reports she did throw up once overnight with blood. 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 Denies: Constipation, Diarrhea, Hematochezia, Melena Genitourinary: Denies: Dysuria Musculoskeletal: Denies: Joint Tenderness Skin: Denies: Jaundice Hematologic/ Lymphatic: Denies: Anemia Patient Problems: Active and Suspected Problems GI bleed (Acute) - Physical Exam Vitals/I&O's: Vital Signs Temp Pulse Resp BP Pulse Ox 98.7 F 69 18 108/63 99 12/31/19 02:44 12/31/19 02:44 12/31/19 02:44 12/31/19 02:44 12/31/19 02:44 Oxygen Delivery Method Room Air Weight: 219 lb 6.4 oz Body Mass Index (BMI) 33.3 Finger Stick Blood Glucose 85 Intake and Output for Last 24 Hours 12/29/19 12/30/19 12/31/19 23:59 23:59 23:59 Intake Total 1400 / 1400 Output Total 200 / 200 250 / 250 Balance 1200 / 1200 -250 / -250 General: Alert, Oriented x3 Neck: No JVD Lungs: Normal air movement Cardiovascular: Regular rate, Regular Rhythm Abdomen: Soft, Non-Distended, Tender - Mild tenderness in the epigastric region Musculoskeletal: No Muscle Wasting Neurological: Cranial nerves II-XII grossly intact Psych/Mental Status: Normal Affect Laboratory Results 12/30/19 16:58: WBC 8.9, RBC 4.40, Hgb 13.3, Hct 40.4, MCV 91.8, MCH 30.2, MCHC 32.9, RDW Std Deviation 42.3, RDW Coeff of Adonis 12.7, Plt Count 312, MPV 11.9, Immature Gran % (Auto) 0.200, Neut % (Auto) 75.9 H, Lymph % (Auto) 17.5 L, [place] % (Auto) 6.1, Eos % (Auto) 0.1, Baso % (Auto) 0.2, Absolute Neuts (auto) 6.7, Absolute Lymphs (auto) 1.55, Nucleated RBC % 0 12/30/19 16:58: Sodium 142, Potassium 3.4 L, Chloride 106, Carbon Dioxide 29.0, Anion Gap 7, BUN 15, Creatinine 1.05 H, Estim Creat Clear Calc 84.78, Est GFR (MDRD) Af Amer 84, Est GFR (MDRD) Non-Af 69, BUN/Creatinine Ratio 14.3, Glucose 85, Calcium 9.6, Total Bilirubin 0.40, AST 8 L, ALT 18, Alkaline Phosphatase 76, Total Protein 7.7, Albumin 4.2, Globulin 3.5, Albumin/Globulin Ratio 1.2, Lipase 48 L 12/30/19 16:58: Serum , Qual NEGATIVE 12/31/19 05:30: Sodium 142, Potassium 3.4 L, Chloride 112 H, Carbon Dioxide 26.0, Anion Gap 4 L, BUN 12, Creatinine 0.78, Estim Creat Clear Calc 114.12, Est GFR (MDRD) Af Amer 119, Est GFR (MDRD) Non-Af 99, BUN/Creatinine Ratio 15.5, Glucose 87, Calcium 8.6 12/31/19 05:30: WBC 7.3, RBC 4.05 L, Hgb 12.2, Hct 38.3, MCV 94.6, MCH 30.1, MCHC 31.9 L, RDW Std Deviation 44.4 H, RDW Coeff of Adonis 13.0, Plt Count 255, MPV 12.0, Immature Gran % (Auto) 0.300, Neut % (Auto) 64.0, Lymph % (Auto) 24.8, [place] % (Auto) 9.5, Eos % (Auto) 1.1, Baso % (Auto) 0.3, Absolute Neuts (auto) 4.7, Absolute Lymphs (auto) 1.82, Nucleated RBC % 0 Current Medications Acetaminophen (Acetaminophen 325 Mg Tablet) 650 mg PO Q6H PRN PRN PRN Reason: Pain Score 1-10/Temp > 100.7 F Acyclovir (Acyclovir 200 Mg Capsule) 400 mg PO BID [facility] Last Admin: 12/30/19 21:06 Dose: 400 mg Documented by: Pantoprazole Sodium 40 mg/ (Sodium Chloride) 110 mls @ 330 mls/hr IV Q12 [facility] Influenza Virus Vaccine Quadrival (Influenza Vaccine (6mos+)/Pf 0.5 Ml Syringe) 0.5 ml IM .ONCE ONE Stop: 12/31/19 10:01 Melatonin (Melatonin 3 Mg Tablet) 3 mg PO QHS PRN PRN PRN Reason: INSOMNIA Nutritional Formula (Lactose Free) (Ensure Clear 120 Ml Liquid) 120 ml PO TIDCM [facility] Ondansetron HCl (Ondansetron 4 Mg/2 Ml Vial) 4 mg IV Q8H PRN PRN PRN Reason: NAUSEA/VOMITING Sodium Chloride (0.9% Saline Lock 10 Ml Syringe) 10 - 40 ml IV UD PRN PRN Reason: SALINE FLUSH Assessment/Plan All Active Problems GI bleed (Acute) 24-year-old female with upper GI bleed 1. Patient reports bloody vomiting which started suddenly yesterday with epigastric pain. The patient reports hematemesis but no melena. The patient has been on NSAIDs. I recommend EGD today. Patient will remain n.p.o. and her hemoglobin is stable. Patient has been started on a PPI and will be discharged on a PPI. 2. I explained endoscopy in detail to the patient. I explained the risks including but not limited to stroke or heart attack with anesthesia, perforation of the GI tract, bleeding, infection. I explained that any of these could necessitate further emergency surgery. The patient understands and all questions were answered sufficiently. The patient wishes to proceed with procedure. Julio Rivera MD Pager: [facility] [address] [place] [address] [address] [place] [address] Office:
[2019-12-31] MEDS: 0.9% Saline Lock 10 ML Syringe IV ×2 (08:47→09:47)
--- NOTE | 2019-12-31 08:54 | PN_ITS ---
Patient Problems: Active and Suspected Problems GI bleed (Acute) Vitals/I&O's: Vital Signs Temp Pulse Resp BP Pulse Ox 98.7 F 69 18 108/63 99 12/31/19 02:44 12/31/19 02:44 12/31/19 02:44 12/31/19 02:44 12/31/19 02:44 Oxygen Delivery Method Room Air Weight: 99.518 kg Body Mass Index (BMI) 33.3 Finger Stick Blood Glucose 85 Intake and Output for Last 24 Hours 12/29/19 12/30/19 12/31/19 23:59 23:59 23:59 Intake Total 1400 / 1400 Output Total 200 / 200 250 / 250 Balance 1200 / 1200 -250 / -250 Laboratory Results 12/30/19 16:58: WBC 8.9, RBC 4.40, Hgb 13.3, Hct 40.4, MCV 91.8, MCH 30.2, MCHC 32.9, RDW Std Deviation 42.3, RDW Coeff of Adonis 12.7, Plt Count 312, MPV 11.9, Immature Gran % (Auto) 0.200, Neut % (Auto) 75.9 H, Lymph % (Auto) 17.5 L, [place] % (Auto) 6.1, Eos % (Auto) 0.1, Baso % (Auto) 0.2, Absolute Neuts (auto) 6.7, Absolute Lymphs (auto) 1.55, Nucleated RBC % 0 12/30/19 16:58: Sodium 142, Potassium 3.4 L, Chloride 106, Carbon Dioxide 29.0, Anion Gap 7, BUN 15, Creatinine 1.05 H, Estim Creat Clear Calc 84.78, Est GFR (MDRD) Af Amer 84, Est GFR (MDRD) Non-Af 69, BUN/Creatinine Ratio 14.3, Glucose 85, Calcium 9.6, Total Bilirubin 0.40, AST 8 L, ALT 18, Alkaline Phosphatase 76, Total Protein 7.7, Albumin 4.2, Globulin 3.5, Albumin/Globulin Ratio 1.2, Lipase 48 L 12/30/19 16:58: Serum , Qual NEGATIVE 12/31/19 05:30: Sodium 142, Potassium 3.4 L, Chloride 112 H, Carbon Dioxide 26.0, Anion Gap 4 L, BUN 12, Creatinine 0.78, Estim Creat Clear Calc 114.12, Est GFR (MDRD) Af Amer 119, Est GFR (MDRD) Non-Af 99, BUN/Creatinine Ratio 15.5, Glucose 87, Calcium 8.6 12/31/19 05:30: WBC 7.3, RBC 4.05 L, Hgb 12.2, Hct 38.3, MCV 94.6, MCH 30.1, MCHC 31.9 L, RDW Std Deviation 44.4 H, RDW Coeff of Adonis 13.0, Plt Count 255, MPV 12.0, Immature Gran % (Auto) 0.300, Neut % (Auto) 64.0, Lymph % (Auto) 24.8, [place] % (Auto) 9.5, Eos % (Auto) 1.1, Baso % (Auto) 0.3, Absolute Neuts (auto) 4.7, Absolute Lymphs (auto) 1.82, Nucleated RBC % 0 Current Medications Acetaminophen (Acetaminophen 325 Mg Tablet) 650 mg PO Q6H PRN PRN PRN Reason: Pain Score 1-10/Temp > 100.7 F Acyclovir (Acyclovir 200 Mg Capsule) 400 mg PO BID [facility] Last Admin: 12/30/19 21:06 Dose: 400 mg Documented by: Pantoprazole Sodium 40 mg/ (Sodium Chloride) 110 mls @ 330 mls/hr IV Q12 [facility] Influenza Virus Vaccine Quadrival (Influenza Vaccine (6mos+)/Pf 0.5 Ml Syringe) 0.5 ml IM .ONCE ONE Stop: 12/31/19 10:01 Melatonin (Melatonin 3 Mg Tablet) 3 mg PO QHS PRN PRN PRN Reason: INSOMNIA Nutritional Formula (Lactose Free) (Ensure Clear 120 Ml Liquid) 120 ml PO TIDCM [facility] Last Admin: 12/31/19 07:55 Dose: Not Given Documented by: Ondansetron HCl (Ondansetron 4 Mg/2 Ml Vial) 4 mg IV Q8H PRN PRN PRN Reason: NAUSEA/VOMITING Potassium Chloride (Potassium Chloride 20 Meq Tablet) 60 meq PO X1 ONE Stop: 12/31/19 08:54 Sodium Chloride (0.9% Saline Lock 10 Ml Syringe) 10 - 40 ml IV UD PRN PRN Reason: SALINE FLUSH Last Admin: 12/31/19 08:47 Dose: 10 ml Documented by: Medical Necessity - Tobacco Use Smoking Status: Current every day smoker Tobacco Use: Cigarettes Assessment/Plan All Active Problems GI bleed (Acute)
[2019-12-31] MEDS: Potassium Chloride 10mEq/100mL 10 MEQ/100 ML IV.SOLN. 100 MEQ IV BOLUS (09:47)
--- NOTE | 2019-12-31 11:00 | EGD_PTH ---
PATIENT: BEATRIZ DILL LOC: MS3 U#:[id number] AGE/SX: 24/F ROOM: MS321 RE12/30/[address]: Dr. Teressa Huitron MD : 1995 BED: 1 DIS: 12/31/2019 SPEC #: [id number] RECD: 12/31/19 12:12 STATUS: COLE RE #: [id number] BRITNI: 12/31/19 11:[address]: Julio Rivera DEPT: SURGICAL PATHOLOGY RECD BY: Larissa Morfin ENTERED: 12/31/19 13:35 SP TYPE: EGD BIOPSY OTHR DR: MD Dr. Teressa Barcenas MD Dr. Nicholas F Kotsonis, MD M Gregory [place], [place] Tissues: A - Gastric mucous membrane B - Gastric mucous membrane Procedures: Special Stain Group II Surgery Specimen Level IV Alcian Blue/PAS (control) Comments: @ Ordering doctor for LELAND edited from to @ pierre HYDE at 12/31/19 1344 @ Submitting doctor edited from to @ by SANDRAOD at 12/31/19 1344 HEADER OPERATION: EGD ([facility] [place]) PRE-OP DIAGNOSIS: GI bleed, hematemesis TISSUE SUBMITTED: A - Antrum biopsy for histo and H. pylori, B - GE junction biopsy MICROSCOPIC DIAGNOSIS A. Antrum, biopsy: Mild gastritis. See microscopic description and comment. B. GE junction, biopsy: Fragments of gastroesophageal mucosa with mild chronic inflammation. Intestinal metaplasia (goblet cell metaplasia) is not identified. See comment. SJ:rg 01/02/20 COMMENT A. The results of immunohistochemistry for Helicobacter pylori will be reported separately ([id number]). B. The specimen predominantly consists of squamous mucosa. Alcian blue/PAS stain with matched control is used in the evaluation of the specimen. MICROSCOPIC DESCRIPTION Slides are reviewed. A. The specimen shows fragments of gastric mucosa with chronic inflammatory cell infiltrates in the lamina propria consisting of lymphocytes and plasma cells, consistent with mild chronic gastritis. GROSS DESCRIPTION A - Received in fixative is one container labeled with the patient's name and designated antrum biopsy. The specimen consists of multiple irregular fragments of light crum soft tissue that in aggregate measure 0.6 x 0.3 x 0.1 cm. The specimen is totally submitted in one cassette. B - Received in fixative is one container labeled with the patient's name and designated GE junction biopsy. The specimen consists of two irregular fragments of light crum soft tissue that in aggregate measure 0.6 x 0.3 x 0.1 cm. The specimen is totally submitted in one cassette. / SJ:rg 12/31/19 TC:3 CPT: 12856 x2, 19098
--- NOTE | 2019-12-31 11:00 | IMM_PTH ---
PATIENT: BEATRIZ DILL LOC: MS3 U#:[id number] AGE/SX: 24/F ROOM: MS321 RE12/30/[address]: Dr. Teressa Huitron MD : 1995 BED: 1 DIS: 12/31/2019 SPEC #: [id number] RECD: 12/31/19 13:29 STATUS: COLE REQ #: [id number] BRITNI: 12/31/19 11:[address]: Julio Rivera DEPT: IMMUNOHISTOCHEMISTRY RECD BY: Angelica Amador ENTERED: 12/31/19 13:29 SP TYPE: IMMUNO OTHR DR: MD Dr. Sky Solis MD M Gregory Barton, [place] Tissues: A - Stomach, NOS Procedures: H Pylori (initial) PHYSICIAN & INSTITUTION [place] [address] SPECIMEN INFORMATION: Tissue Source: A - Antrum biopsy Clinical Info: GI bleed, hematemesis Specimen Number: [id number] CPT code: 25089 METHODOLOGY: Deparaffinized sections of prefer/formalin-fixed tissue or PAP/DQ stained slides are incubated with monoclonal/polyclonal antibodies/oligonucleotide probes. Localization is made via biotin free immunoperoxidase method. Appropriate controls are performed and reacted as expected. Results on target cell population are indicated in the following table: RESULTS: ANTIBODY / CLONE RESULT Block A H Pylori (polyclonal) negative These tests were developed and their performance characteristics determined by [facility]. They may not have been cleared or approved by the U.S. Food and Drug Administration. The FDA has determined that such clearance or approval is not necessary. INTERPRETATION: A. Antrum, biopsy: Negative for Helicobacter pylori organisms. SJ:angeline 01/02/20
--- NOTE | 2019-12-31 11:53 | PCM.PN.BLA ---
Progress Note I performed an EGD on the patient today. The patient had gastritis with bleeding as well as esophagitis with bleeding. Patient had biopsy of the antrum for H. pylori and biopsy of the GE junction. Recommend continuing PPI and Carafate. Patient may be advanced to clears and advance as tolerated. Patient should be discharged on a PPI and follow-up with me in 2 to 4 weeks. Julio Rivera MD Pager: [facility] [address] [place] [address] [address] [place] [phone] Office: [facility] Vital Signs/Narrative: Vital Signs Temp Pulse Resp BP Pulse Ox 12/31/19 08:50 98.1 F 60 18 124/69 H 94
--- NOTE | 2019-12-31 11:56 | OP.CCLET_ITS ---
12/31/2019 Coral Hernandez Re : Upper GI endoscopy procedure for Eva Bermudez Dear David This procedure was performed on Tuesday, December 31, 2019. My impressions and recommendations are as follows: Impressions : - Mildly severe esophagitis. Biopsied. - Gastritis with hemorrhage. Biopsied. - Normal examined duodenum. - Medium-sized hiatal hernia. Recommendations : - [facility]. - Advance diet as tolerated. - Continue present medications. - Await pathology results. My findings are described in the full procedure note, which is enclosed. If I can be of further assistance, please feel free to contact me at Doctor phone number(s): , Work: . Sincerely, Julio Rivera MD 12/31/2019 11:56:07 AM This report has been signed electronically.
--- NOTE | 2019-12-31 11:56 | OP.EGD_ITS ---
Patient Name: Eva Bermudez Procedure Date: 12/31/2019 11:16 AM Date of : 1995 Age: 24 Procedure: Upper GI endoscopy Indications: Hematemesis Providers: Julio Rivera MD Medicines: Monitored Anesthesia Care Patient Profile: This is a 24 year old female. Refer to note in patient chart for documentation of history and physical. Complications: No immediate complications. Estimated blood loss: Minimal. Procedure: Pre-Anesthesia Assessment: - Prior to the procedure, a History and Physical was performed, and patient medications and allergies were reviewed. The patient's tolerance of previous anesthesia was also reviewed. The risks and benefits of the procedure and the sedation options and risks were discussed with the patient. All questions were answered, and informed consent was obtained. Prior Anticoagulants: The patient has taken no previous anticoagulant or antiplatelet agents. After reviewing the risks and benefits, the patient was deemed in satisfactory condition to undergo the procedure. After obtaining informed consent, the endoscope was passed under direct vision. Throughout the procedure, the patient's blood pressure, pulse, and oxygen saturations were monitored continuously. The gastroscope was introduced through the mouth, and advanced to the second part of duodenum. The upper GI endoscopy was accomplished without difficulty. The patient tolerated the procedure well. Scope In: 11:41:01 AM Scope Out: 11:44:23 AM Total Procedure Duration Time 0 hours 3 minutes 22 seconds Findings: Mildly severe esophagitis with bleeding was found at the gastroesophageal junction. Biopsies were taken with a cold forceps for histology. Diffuse moderate inflammation with hemorrhage characterized by adherent blood was found in the stomach. Biopsies were taken with a cold forceps for Helicobacter pylori testing. The examined duodenum was normal. A medium-sized hiatal hernia was present. Impression: - Mildly severe esophagitis. Biopsied. - Gastritis with hemorrhage. Biopsied. - Normal examined duodenum. - Medium-sized hiatal hernia. Recommendation: - [facility]. - Advance diet as tolerated. - Continue present medications. - Await pathology results. Procedure Code(s): --- Professional --- 25826, Esophagogastroduodenoscopy, flexible, transoral; with biopsy, single or multiple Diagnosis Code(s): --- Professional --- K20.9, Esophagitis, unspecified K29.71, Gastritis, unspecified, with bleeding K44.9, Diaphragmatic hernia without obstruction or gangrene K92.0, Hematemesis CPT copyright 2017 [employer]. All rights reserved. The codes documented in this report are preliminary and upon inpatient coder review may be revised to meet current compliance requirements. Julio Rivera MD 12/31/2019 11:56:07 AM This report has been signed electronically. Number of Addenda: 0 Note Initiated On: 12/31/2019 11:16 AM
[2019-12-31] MEDS: Acyclovir 200 MG Capsule 400 MG PO (12:51)
--- NOTE | 2019-12-31 14:43 | DCINST_ITS ---
- Discharge Diagnoses Current Active Problems: Current Active and Chronic Problems GI bleed (Acute) Reason(s) for Visit for Discharge Instructions: Hematemesis You will use the following diet at home:: Regular Your food should be the consistency of: Regular Your liquids should be the consistency of: Regular/Thin Discharge Activity: Return to Normal Activity Additional Instructions: Continue to take all your medications as prescribed. Do not take ibuprofen or Advil or any of the [id number]-[id number] pain medications. Follow-up with echocardiogram in 2 to 4 weeks. Allergies/Adverse Reactions: Allergies No Known Allergies Allergy (Verified 12/30/19 16:34) Medications to take at Discharge Acyclovir [Zovirax] 400 mg PO BID 12/30/19 Pantoprazole Sodium 40 mg PO BID 30 Days #60 tablet. 12/31/19 Sucralfate [Carafate] 1 gm PO 1HR_ACHS 30 Days #90 tab 12/31/19 The following prescriptions were given: Sucralfate [Carafate] 1 gm PO 1HR_ACHS 30 Days #90 tab Transmission Status: Pending to [facility] #30 Pantoprazole Sodium 40 mg PO BID 30 Days #60 tablet. Transmission Status: Pending to [facility] Primary Care Physician: Coral Hernandez PA [Primary Care Provider] - Please follow up with your Primary Care Physician in: within 1-2 weeks Test Results: Test results from this visit will be discussed in further detail at your follow- up appointment, if applicable. Please Follow Up With: Julio Rivera MD When: in 2-4 weeks Proposed Discharge Date: 12/31/19
--- NOTE | 2019-12-31 14:44 | PCM.DC.SUM ---
Discharge Date and Diagnosis - Problem List Patient Problems: Active and Suspected Problems GI bleed (Acute) Date of Admission: 12/30/19 Date of Discharge: 12/31/19 - Primary Discharge Diagnosis Acute Problems: Active Problems Acute GI bleed Acute severe gastritis/esophagitis likely secondary to NSAID use nicotine dependence Hospital Course and Treatment General surgery Operations: None Procedures: EGD Summary of Care Provided: The patient is a 24 year old F with a recent diagnosis of genital herpes, and has been on NSAIDs, GERD comes in with bloody emesis. Patient had complained of abdominal discomfort/burning and had severe nausea with resultant vomiting. She vomited 4 times prior to coming to the emergency department. Her initial emesis did not have blood but the later ones did. Abdominal discomfort is worse after meals. Patient's vitals were stable in the emergency department. He had 2 more episodes of bloody emesis in the emergency department that appeared to be more coffee-ground. Neurosurgery was consulted from the emergency department. Patient was started on IV PPI and kept n.p.o. She underwent EGD on 12/31/19 and findings showed mildly severe esophagitis which was biopsied, gastritis with hemorrhage which was also biopsied, medium-sized hiatal hernia. Patient was monitored postprocedure. Her vitals remained stable. She was able to tolerate a clear liquid diet. She was also able to tolerate later in normal diet. She was discharged home to follow-up with a general surgeon in 2 to 4 weeks. She was discharged on sucralfate and PPI. She was advised to avoid taking NSAIDs. She is to follow-up with her primary doctor within 1 to 2 weeks. Patient Problems: Active and Suspected Problems GI bleed (Acute) Subjective: On the day of discharge, patient was seen and examined. Denied any new complaints. Objective: Physical exam: General: Alert, Oriented x3, Cooperative HEENT: Atraumatic, PERRLA, EOMI, Normocephalic Neck: Supple, No JVD, Negative Carotid Bruits Lungs: Clear to auscultation, Normal air movement Cardiovascular: Regular rate, No murmurs Abdomen: Bowel Sounds Present, Soft, Non Tender Extremities: No edema, Capillary Refill Less than 3 Seconds Skin: No rashes, No breakdown Musculoskeletal: No Tenderness to Palpation of Joints or Extremities Neurological: Cranial nerves II-XII grossly intact Psych/Mental Status: Normal Affect, Appropriate - Physical Exam Vitals/I&O's: Vital Signs Temp Pulse Resp BP Pulse Ox 97.6 F L 50 L 16 112/67 99 12/31/19 12:15 12/31/19 12:15 12/31/19 12:15 12/31/19 12:15 12/31/19 12:15 Oxygen Delivery Method Room Air Weight: 99.51 kg Body Mass Index (BMI) 33.3 Finger Stick Blood Glucose 85 Intake and Output for Last 24 Hours 12/29/19 12/30/19 12/31/19 23:59 23:59 23:59 Intake Total 1400 / 1400 148.33 / 148.33 Output Total 200 / 200 250 / 250 Balance 1200 / 1200 -101.67 / -101.67 Microbiology Past 72 Hours 12/31/19 08:38 Mucosa - Nose SARS-CoV-2 Antigen (Rapid) - Final Laboratory Results 12/30/19 16:58: WBC 8.9, RBC 4.40, Hgb 13.3, Hct 40.4, MCV 91.8, MCH 30.2, MCHC 32.9, RDW Std Deviation 42.3, RDW Coeff of Adonis 12.7, Plt Count 312, MPV 11.9, Immature Gran % (Auto) 0.200, Neut % (Auto) 75.9 H, Lymph % (Auto) 17.5 L, [place] % (Auto) 6.1, Eos % (Auto) 0.1, Baso % (Auto) 0.2, Absolute Neuts (auto) 6.7, Absolute Lymphs (auto) 1.55, Nucleated RBC % 0 12/30/19 16:58: Sodium 142, Potassium 3.4 L, Chloride 106, Carbon Dioxide 29.0, Anion Gap 7, BUN 15, Creatinine 1.05 H, Estim Creat Clear Calc 84.78, Est GFR (MDRD) Af Amer 84, Est GFR (MDRD) Non-Af 69, BUN/Creatinine Ratio 14.3, Glucose 85, Calcium 9.6, Total Bilirubin 0.40, AST 8 L, ALT 18, Alkaline Phosphatase 76, Total Protein 7.7, Albumin 4.2, Globulin 3.5, Albumin/Globulin Ratio 1.2, Lipase 48 L 12/30/19 16:58: Serum , Qual NEGATIVE 12/31/19 05:30: Sodium 142, Potassium 3.4 L, Chloride 112 H, Carbon Dioxide 26.0, Anion Gap 4 L, BUN 12, Creatinine 0.78, Estim Creat Clear Calc 114.12, Est GFR (MDRD) Af Amer 119, Est GFR (MDRD) Non-Af 99, BUN/Creatinine Ratio 15.5, Glucose 87, Calcium 8.6 12/31/19 05:30: WBC 7.3, RBC 4.05 L, Hgb 12.2, Hct 38.3, MCV 94.6, MCH 30.1, MCHC 31.9 L, RDW Std Deviation 44.4 H, RDW Coeff of Adonis 13.0, Plt Count 255, MPV 12.0, Immature Gran % (Auto) 0.300, Neut % (Auto) 64.0, Lymph % (Auto) 24.8, [place] % (Auto) 9.5, Eos % (Auto) 1.1, Baso % (Auto) 0.3, Absolute Neuts (auto) 4.7, Absolute Lymphs (auto) 1.82, Nucleated RBC % 0 12/31/19 05:30: Magnesium 2.0 Current Medications Acetaminophen (Acetaminophen 325 Mg Tablet) 650 mg PO Q6H PRN PRN PRN Reason: Pain Score 1-10/Temp > 100.7 F Acyclovir (Acyclovir 200 Mg Capsule) 400 mg PO BID [facility] Last Admin: 12/31/19 12:51 Dose: 400 mg Documented by: Pantoprazole Sodium 40 mg/ (Sodium Chloride) 110 mls @ 330 mls/hr IV Q12 [facility] Last Infusion: 12/31/19 13:11 Dose: Infused Documented by: Melatonin (Melatonin 3 Mg Tablet) 3 mg PO QHS PRN PRN PRN Reason: INSOMNIA Nicotine (Nicotine 14 Mg Patch) 14 mg TD DAILY [facility] Last Admin: 12/31/19 13:15 Dose: 14 mg Documented by: Nutritional Formula (Lactose Free) (Ensure Clear 120 Ml Liquid) 120 ml PO TIDCM [facility] Last Admin: 12/31/19 12:12 Dose: Not Given Documented by: Ondansetron HCl (Ondansetron 4 Mg/2 Ml Vial) 4 mg IV Q8H PRN PRN PRN Reason: NAUSEA/VOMITING Sodium Chloride (0.9% Saline Lock 10 Ml Syringe) 10 - 40 ml IV UD PRN PRN Reason: SALINE FLUSH Last Admin: 12/31/19 09:47 Dose: 10 ml Documented by: Sucralfate (Sucralfate 1 Gm Tablet) 1 gm PO 1HR_ACHS [facility] Discharge Diet: No Restrictions Discharge Activity: Return to Normal Activity Home Medications: Medications to take at Discharge Acyclovir [Zovirax] 400 mg PO BID 12/30/19 Pantoprazole Sodium 40 mg PO BID 30 Days #60 tablet. 12/31/19 Sucralfate [Carafate] 1 gm PO 1HR_ACHS 30 Days #90 tab 12/31/19 Following Prescriptions Were Given to Patient: Sucralfate [Carafate] 1 gm PO 1HR_ACHS 30 Days #90 tab Transmission Status: Received by [facility] #30 Pantoprazole Sodium 40 mg PO BID 30 Days #60 tablet. Transmission Status: Received by [facility] Primary Care Physician: Coral Hernandez PA [Primary Care Provider] - Please follow up with your Primary Care Physician in: within 1-2 weeks Please Follow Up With: Julio Rivera MD When: in 2-4 weeks Disposition: Home Minutes spent on discharge:: 45 Patient Condition:: Stable Medical Necessity - Tobacco Use Smoking Status: Current every day smoker Tobacco Use: Cigarettes Meaningful Use Info Meaningful Use Diagnoses (Choose all that apply): None applicable Inpatient E&M: 97636 Disch Hosp
== END 2019-12-31 16:04 | disposition home or self-care (01) ==
LOC: ED 17:03 → MS3 20:36
PROVIDERS: Surgery; Admitting Provider Family Medicine; Emergency Provider Emergency Medicine; PCP Physician Assistant; Visit Provider Internal Medicine
PROC: 0DJ08ZZ Inspection of Upper Intestinal Tract, Via Natural or Artificial Opening Endoscopic (ICD-10-PCS; CPT 43235; principal; 2019-12-31 10:55)
DX: K29.71 Gastritis, unspecified, with bleeding (principal); K21.00 Gastro-esophageal reflux disease with esophagitis, without bleeding; K44.9 Diaphragmatic hernia without obstruction or gangrene; F17.210 Nicotine dependence, cigarettes, uncomplicated; Z23 Encounter for immunization; Z79.899 Other long term (current) drug therapy; A60.00 Herpesviral infection of urogenital system, unspecified
CPT/HCPCS: 43239; 36415; 80048; 80053; 83690; 83735; 84703; 85025; 87426; 88305; 88313; 88342; 96365; 96366; 96375; 97802; 99218; 99284; 99406; J7030; 90686; A4216; G0378; J2405; J3490

== ENCOUNTER 2021-04-05 13:47 | Outpatient (CLI) | payer BC, MEDICAID, SELFPAY ==
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
== END 2021-04-05 23:59 | disposition home or self-care (01) ==
LOC: CT 13:50
PROVIDERS: PCP Physician Assistant; Referring Provider Podiatrist; Visit Provider Podiatrist
DX: M96.0 Pseudarthrosis after fusion or arthrodesis (principal); M19.271 Secondary osteoarthritis, right ankle and foot
CPT/HCPCS: 73700